=== PATIENT | male | born 1965 | race Caucasian/White ===

== ENCOUNTER 2023-06-07 07:54 | Emergency (ER) | payer OTHER, SELFPAY ==
[2023-06-07 08:02] VITALS: BP 148/82; PULSE 89; RESP 16; TEMP 37.1; O2SAT 95; BMI 36.0
--- NOTE | 2023-06-07 08:12 | ED_ITS ---
HPI - Abdominal Pain 2 General: Chief Complaint: Abdominal Pain Stated Complaint: Stomach pains Time Seen by Provider: 06/07/23 08:01 Source: patient Mode of arrival: ambulatory History of Present Illness: 58-year-old female presents emergency ro om with complaint of abdominal pain that began about 2 days ago. She feels significantly more bloated this morning. She denies dysuria urgency or frequency. Relates most of the pain to the left upper quadrant and left flank she denies any history of kidney stones. No vomiting no diarrhea no hematochezia melena hematemesis. She not previously had any major abdominal surgeries. She states that she has had a heart attack but did not have any kind of intervention or angiography bypass etc., she states this was diagnosed based on an old EKG. MD elicited complaint: abdominal pain Onset (ago): day(s) (2) Pain Consistency: constant Location: LUQ and LLQ Quality: cramping Radiation: LUQ Exacerbating factors: nothing Relieving factors: nothing Associated Symptoms: Reports nausea; Denies anorexia, belching, bloating, change in bowel habits, change in stool character, chills, coffee ground emesis, constipation, GI cramping, diarrhea, dyspepsia, dysuria, excessive flatus, fever(s), heartburn, hematochezia, hematuria, hematemesis, fecal incontinence, loose stools, melena, poor appetite, syncope and vomiting Review of Systems 2 Const: Denies: fever(s) or chills Card: Denies: chest pain or syncope Resp: Denies: dyspnea GI: Reports: abdominal pain and nausea; Denies: vomiting, hematemesis, coffee ground emesis, heartburn, diarrhea, constipation, bloating, GI cramping, belching, excessive flatus, fecal incontinence, change in bowel habits, change in stool character, hematochezia or melena : Denies: flank pain, dysuria, urinary frequency, urinary urgency or hematuria Musc: Denies: neck pain or back pain Skin/Breast: Denies: rash Physical Exam 2 Const: GENERAL APPEARANCE: cooperative and comfortable O RIENTATION/CONSCIOUSNESS: Yes awake, Yes oriented to person, Yes oriented to place and Yes oriented to time HENMT: COMMON NORMALS: normocephalic, atraumatic and hearing grossly normal bilaterally HEAD & SCALP: normocephalic and atraumatic Resp: COMMON NORMALS: normal respiratory effort, No retractions, No use of accessory muscles and clear to auscultation bilaterally AUSCULTATION: clear to auscultation bilaterally Cardio: COMMON NORMALS: regular rate, regular rhythm and No murmurs present (Cardio) RATE: regular rate RHYTHM: regular rhythm GI: COMMON NORMALS: No hepatosplenomegaly present AUSCULTATION: Yes normoactive bowel sounds PALPATION: Yes Tenderness to palpation present (GI) Details: LLQ and LUQ, No Guarding due to palpation present (GI) and Yes No hepatosplenomegaly present Extremity: COMMON NORMALS: normal to inspection, capillary refill normal, no clubbing, cyanosis or edema, no calf tenderness and no pedal edema Neuro: SENSORIUM/ORIENTATION: Yes oriented to person, Yes oriented to place and Yes oriented to time Skin: COMMON NORMALS: no rashes or lesions noted GENERAL SKIN EXAM: no rashes or lesions noted Course 2 Vital Signs: Vital signs: Vital Signs Temperature 98.8 F 06/07/23 08:02 Pulse Rate 83 06/07/23 10:29 Respiratory Rate 18 06/07/23 10:29 Blood Pressure 121/83 06/07/23 10:29 Pulse Oximetry 98 06/07/23 10:29 Oxygen Delivery Me thod Room Air 06/07/23 09:13 MDM - Abdominal Pain Medical Decision Making CT shows poor gastric emptying otherwise labs vital signs and imaging are unremarkable. Start the patient on Reglan as well as starting her on a proton pump inhibitor encouraged her to follow-up with primary care for further evaluation. She may need EGD or gastric emptying study. Patient has not been previously diagnosed with gastroparesis and she is not diabetic if symptoms worsen or change return. Medical Records I reviewed the patient's medical records. Lab Data I reviewed the patient's lab results. 06/07/23 08:08 06/07/23 08:08 Labs/Radiology: Laboratory Results WBC 6.38 10^3/uL (3.29-11.43) 06/07/23 08:08 RBC 4.57 10^6/uL (3.85-5.65) 06/07/23 08:08 Hgb 13.90 g/dL (11.27-16.99) 06/07/23 08:08 Hct 42.4 % (37-53) 06/07/23 08:08 MCV 92.8 fl (82-101) 06/07/23 08:08 MCH 30.4 pg (27-33) 06/07/23 08:08 MCHC 32.8 g/dL (30-55) 06/07/23 08:08 RDW 12.3 % (12.1-15.1) 06/07/23 08:08 Plt Count 345 10^3/cmm (157-399) 06/07/23 08:08 MPV 9.6 fL (7.4-10.4) 06/07/23 08:08 Neut % (Auto) 81.3 % 06/07/23 08:08 Lymph % (Auto) 12.1 % 06/07/23 08:08 [place] % (Auto) 4.1 % 06/07/23 08:08 Eos % (Auto) 1.9 % 06/07/23 08:08 Baso % (Auto) 0.3 % 06/07/23 08:08 Neut # (Auto) 5.19 10^3/uL (1.8-7.7) 06/07/23 08:08 Lymph # (Auto) 0.8 10^3/uL (0.8-4.8) 06/07/23 08:08 [place] # (Auto) 0.3 10^3/uL (0.2-0.9) 06/07/23 08:08 Eos # (Auto) 0.1 10^3/uL (0.0-0.8) 06/07/23 08:08 Baso # (Auto) 0.0 10^3/uL (0.0-0.1) 06/07/23 08:08 Nucleated RBC % (auto) 0 % 06/07/23 08:08 Nucleated RBCs # 0.0 /100WBC 06/07/23 08:08 Sodium 140 mmol/L (136-145) 06/07/23 08:08 Potassium 4.2 mmol/L (3.5-5.1) 06/07/23 08:08 Chloride 104 mmol/L (98-107) 06/07/23 08:08 Carbon Dioxide 25 mmol/L (22-29) 06/07/23 08:08 Anion Gap 15.2 (5-19) 06/07/23 08:08 BUN 16 mg/dL (6-20) 06/07/23 08:08 Creatinine 0.8 mg/dL (0.7-1.2) 06/07/23 08:08 GFR Calculation 100.0 mL/min (90-130) 06/07/23 08:08 Glucose 103 mg/dL (65-115) 06/07/23 08:08 Calculated Osmolality 291 mOsm/kg (285-295) 06/07/23 08:08 Calcium 9.3 mg/dL (8.5-10.5) 06/07/23 08:08 Total Bilirubin 0.3 mg/dL (0.15-1.2) 06/07/23 08:08 AST 16 U/L (0-40) 06/07/23 08:08 ALT 14 U/L (0-41) 06/07/23 08:08 Alkaline Phosphatase 96 U/L (40-130) 06/07/23 08:08 Total Protein 7.9 g/dL (6.6-8.7) 06/07/23 08:08 Albumin 4.2 g/dL (3.5-5.2) 06/07/23 08:08 Globulin 3.7 g/dL (1.3-4.6) 06/07/23 08:08 Lipase 28 U/L (13-60) 06/07/23 08:08 Urine Color Yellow (Yellow) 06/07/23 08:52 Urine Appearance Hazy (CLEAR) A 06/07/23 08:52 Urine pH 5 (5-7) 06/07/23 08:52 Ur Specific [place] 1.020 (1.005-1.030) 06/07/23 08:52 Urine Protein Neg (Negative) 06/07/23 08:52 Urine Glucose (UA) Norm (Normal) 06/07/23 08:52 Urine Ketones Negative (Negative) 06/07/23 08:52 Urine Blood 2+ (Negative) H 06/07/23 08:52 Urine Nitrate Negative (Negative) 06/07/23 08:52 Urine Bilirubin Neg (Negative) 06/07/23 08:52 Urine Urobilinogen Norm mg/dL (Negative) 06/07/23 08:52 Ur Leukocyte Esterase 1+ (Negative) H 06/07/23 08:52 Urine RBC 0-4 /hpf (0-2) H 06/07/23 08:52 Urine WBC 0-4 /hpf (0-5) H 06/07/23 08:52 Ur Squamous Epith Cells 5-10 /hpf (0-5) H 06/07/23 08:52 Amorphous Sediment 1+ /hpf 06/07/23 08:52 Urine Bacteria Trace /hpf (NONE) 06/07/23 08:52 Urine Mucus 2+ /hpf 06/07/23 08:52 All radiology interpretation(s) finalized by discharge Discharge Plan Discharge Patient Disposition: Home Clinical Impression: Gastroparesis Condition: Stable Prescriptions: New Protonix 40 mg tablet,delayed release (DR/EC) 40 mg PO BID Qty: 60 0RF Reglan 10 mg tablet 10 mg PO Q6H Qty: 120 0RF No Action tizanidine 4 mg tablet 4 mg PO TID PRN (Reason: Spasms) omeprazole 40 mg capsule,delayed release(DR/EC) 40 mg PO DAILY trazodone 100 mg tablet 100 mg PO BEDTIME hydrocodone-acetaminophen 7.5-325 mg tablet 1 tab PO Q6H PRN (Reason: Pain, Moderate) Stool Softener 100 mg capsule 100 mg PO BID PRN (Reason: Constipation) ondansetron 4 mg tablet,disintegrating 4 mg PO Q8H PRN (Reason: Nausea) amoxicillin-pot clavulanate 875-125 mg tablet 1 tab PO Q12H duloxetine 30 mg capsule,delayed release(DR/EC) 30 mg PO BEDTIME Discharge Orders: Discharge ED (Routine); Ordered 06/07/23 Ordered By: Magdy Smallwood Discharge Diet: As Directed Discharge Activity: Increase activity as tolerated Patient Instructions: Diet for Stomach Ulcers and Gastritis (ED), Opioid Safety, Pain Management Coding Level of Care Code ED Cadastral Engineer for Mario Alberto Trujillo
[2023-06-07 08:15] LABS: Basophils % 0.3 %; Eosinophils # 0.1 10^3/uL (0.0-0.8); Eosinophils % 1.9 %; Hematocrit 42.4 % (37-53); Lymphocytes # 0.8 10^3/uL (0.8-4.8); Lymphocytes % 12.1 %; Mean Corpuscular HGB Conc 32.8 g/dL (30-55); Mean Corpuscular Hemoglobin 30.4 pg (27-33); Mean Corpuscular Volume 92.8 fl (82-101); Mean Platelet Volume 9.6 fL (7.4-10.4); Monocytes # 0.3 10^3/uL (0.2-0.9); Monocytes % 4.1 %; Neutrophils # 5.19 10^3/uL (1.8-7.7); Neutrophils % 81.3 %; Nucleated Red Blood Cells % 0 %; Platelet Count 345 10^3/cmm (157-399); Red Blood Count 4.57 10^6/uL (3.85-5.65); Red Cell Distribution Width 12.3 % (12.1-15.1); White Blood Count 6.38 10^3/uL (3.29-11.43)
--- NOTE | 2023-06-07 08:17 | CT_ITS ---
WS: [id number] CT ABDOMEN AND PELVIS NONCONTRAST HISTORY: Abdominal pain TECHNIQUE: Imaging performed through the abdomen and pelvis. Coronal and sagittal reformats are submi tted. All CT scans at [facility] use at least one of these dose optimization techniques: auto mated exposure control; mA and/or kV adjustment per patient size (includes targeted exams where dose is matched to clinical indication); or iterative reconstruction. DLP: 981.91 mGy.cm COMPARISON: None available. Lower thorax: Lung bases are clear. Visualized heart is normal. No hiatal hernia. Liver: Normal size liver. No mass or bile duct dilatation. Gallbladder: Normal gallbladder. No pericholecystic fluid or cholelithiasis. No gallbladder wall thic kening. Pancreas: Normal size and attenuation. Normal pancreatic duct. No pancreatitis or mass. Spleen: Normal. Adrenal glands: Normal. No mass. Right kidney: Normal size kidney with no mass or hydronephrosis. Left kidney: Normal size kidney. Exophytic 13 mm nodule from the lateral kidney. Cannot be further ch aracterized by unenhanced CT. Aorta: Mild atherosclerosis abdominal aorta with no aneurysm. No free fluid, intraperitoneal air or significant lymphadenopathy. GI tract: Stomach is markedly distended with food products. No small bowel obstruction. Normal append ix. Mild constipation. Moderate diverticular burden in the sigmoid colon. No acute diverticulitis. Abdominal wall: Negative. No hernia. Pelvis: No free fluid or adenopathy. Uterus not identified. Osseous structures: Posterior lumbar fusion from L4-S1. IMPRESSION: 1. Marked distention of the stomach with food products. May be due to gastroparesis or if acute zack ritis. 2. Normal appendix. 3. No ascites or adenopathy.
[2023-06-07 08:24] VITALS: BP 148/82; PULSE 89; RESP 18; O2SAT 93
[2023-06-07 08:30] LABS: Alanine Aminotransferase 14 U/L (0-41); Albumin Level 4.2 g/dL (3.5-5.2); Alkaline Phosphatase 96 U/L (40-130); Anion Gap 15.2 (5-19); Aspartate Amino Transferase 16 U/L (0-40); Blood Urea Nitrogen 16 mg/dL (6-20); Calcium 9.3 mg/dL (8.5-10.5); Carbon Dioxide 25 mmol/L (22-29); Chloride 104 mmol/L (98-107); Globulin 3.7 g/dL (1.3-4.6); Glucose 103 mg/dL (65-115); Lipase 28 U/L (13-60); Osmolality Calculated 291 mOsm/kg (285-295); Potassium 4.2 mmol/L (3.5-5.1); Sodium 140 mmol/L (136-145); Total Bilirubin 0.3 mg/dL (0.15-1.2); Total Protein 7.9 g/dL (6.6-8.7)
[2023-06-07] MEDS: morphine 4 mg/mL SDV 1 mL IVP (08:34)
[2023-06-07] MEDS: sodium chloride 0.9% 1,000 ML 999 ML IV (08:34)
[2023-06-07] MEDS: ondansetron 2 mg/ML SDV 2 mL 4 MG IVP (08:34)
--- NOTE | 2023-06-07 09:00 | ECG_ITS ---
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 Measurements Intervals [place] Rate: 75 P: 70 NH: 153 QRS: 74 QRSD: 92 T: 56 QT: 399 QTc: 446 Interpretive Statements SINUS RHYTHM WITH OCCASIONAL VENTRICULAR PREMATURE COMPLEXES LOW QRS VOLTAGE [QRS DEFLECTION < 0.5/1.0 mV IN LIMB/CHEST LEADS] No previous ECG available for comparison Electronically Signed On 06-07-2023 16:03:13 SEO COORDINATOR by Gareth Cruz M.D. [id number]
[2023-06-07] MEDS: metoclopramide 5 mg/mL SDV 2 mL 10 MG IVP (09:12)
[2023-06-07 09:13] VITALS: BP 121/92; PULSE 66; RESP 18; O2SAT 100
[2023-06-07 09:30] LABS: Add Urine Microscopic? YES; Bilirubin Urine Neg (Negative); Blood Urine 2+ (Negative); Glucose Urine UA Norm (Normal); Ketones Urine Negative (Negative); Leukocyte Esterase Urine 1+ (Negative); Nitrate Urine Negative (Negative); Protein Urine Neg (Negative); Urine Appearance Hazy (CLEAR); Urine Color Yellow (Yellow); Urobilinogen Urine Norm (Negative); pH Urine 5 (5-7)
[2023-06-07 09:52] LABS: Add Urine Culture? No; Amorphous Sediment Urine 1+ /hpf; Bacteria Urine TRACE /hpf; Mucus Urine 2+ /hpf; RBC Urine 0-4 /hpf (0-2); WBC Urine 0-4 /hpf (0-5)
[2023-06-07 10:29] VITALS: BP 121/83; PULSE 83; RESP 18; O2SAT 98
--- NOTE | 2023-06-19 08:33 | DCPLANNER ---
Left VM with patient to follow up on PCP-
--- NOTE | 2023-06-25 10:14 | DCPLANNER ---
I called patient to see if we can help her get set up with a PCP and she declined at this time. She said she is already getting one set up. 06/22/23 at 1015
== END 2023-06-07 10:30 | disposition home or self-care (01) ==
PROVIDERS: Emergency Provider Family Medicine
DX: K31.84 Gastroparesis (principal)
CPT/HCPCS: 74176; 80053; 81001; 83690; 85025; 93005; 96374; 96375; 99285; J2270; J2405; J2765; J7030